=== PATIENT | male | born 1960 | race Caucasian/White ===

== ENCOUNTER 2025-08-25 12:26 | Inpatient (IN) | payer OTHER ==
[2025-08-25 12:55] LABS: Absolute Lymphocytes (CBC) 0.7 K/uL (0.7-4.9); Hematocrit 39.1 % (39.6-49.0); Hemoglobin 12.7 g/dL (13.6-17.9); MCH 29.4 pg (27.0-35.0); MCHC 32.6 g/dL (32.0-36.0); MCV 90.2 fL (80-100); MPV 8.0 fL (7.6-11.3); Nucleated RBC Absolute Count 0.0 (0-0); Nucleated Red Blood Cells % 0.0 % (0-0); RBC Red Blood Cell Count 4.33 M/uL (4.33-5.43); White Blood Count 5.00 thou/uL (4.3-10.9)
[2025-08-25 13:16] LABS: ALT/SGPT 36 U/L (16-61); AST/SGOT 35 U/L (15-37); Albumin 2.9 g/dL (3.4-5.0); Albumin/Globulin Ratio 0.7 (1.1-1.8); Alkaline Phosphatase 68 U/L (45-117); Anion Gap 10.9 mEq/L (5.0-15.0); BUN Blood Urea Nitrogen 17 mg/dL (7-18); Globulin 4.3 g/dL (2.3-3.5); Glucose Level 114 mg/dL (74-106); Magnesium 1.6 mg/dL (1.6-2.4); Potassium 3.9 mEq/L (3.5-5.1)
--- NOTE | 2025-08-25 13:19 | RAD REPORT ---
EXAM: Chest Single View HISTORY: 65 years Male seizure COMPARISON: 04/08/2018 FINDINGS: LUNGS/PLEURA: Bronchial wall thickening is seen within the lung bases. No focal consolidation. CARDIAC/MEDIASTINUM: Mild cardiomegaly UPPER ABDOMEN: No significant abnormality. BONES: No acute abnormality. Multiple left-sided rib fractures. LINES/TUBES/OTHER: N/A IMPRESSION: Bronchial wall thickening is seen at the lung bases could reflect acute or chronic bronchitis. No con solidative airspace disease.
[2025-08-25 13:21] LABS: Bilirubin Indirect, Calculated 0.1 mg/dL (0.2-0.8)
[2025-08-25 13:23] LABS: Troponin High Sensitivity 140.5 pg/mL (<58.9)
--- NOTE | 2025-08-25 13:42 | ER ---
Nurse's Notes [facility] Name: Bony Lal Age: 65 yrs Sex: Male : 1960 Arrival Date: 08/25/2025 Time: 12:26 Bed 13 Private MD: Diagnosis: Subsequent non-ST elevation (NSTEMI) myocardial infarction;Other seizures;Essential (primary) hypertension Presentation: 08/25 12:31 Chief complaint: EMS states: "toned out for seizure while at dentist office while mb9 getting cavity replacing after lidocaine injection. Full body seizure for 1 minute.". Coronavirus screen: Vaccine status: Patient reports being unvaccinated. Ebola Screen: No symptoms or risks identified at this time. Initial Sepsis Screen: Does the patient meet any 2 criteria? No. Patient's initial sepsis screen is negative. Does the patient have a suspected source of infection? No. Patient's initial sepsis screen is negative. Risk Assessment: Do you want to hurt yourself or someone else? Patient reports no desire to harm self or others. Onset of symptoms was August 25, 2025. 12:31 Acuity: JONATHAN 2 mb9 12:31 Method Of Arrival: EMS: [facility] mb9 Triage Assessment: 12:32 General: Appears in no apparent distress. Behavior is calm, cooperative. Pain: Denies mb9 pain. EENT: No signs and/or symptoms were reported regarding the EENT system. Neuro: Shin Agitation-Sedation Scale (RASS): 0 - Alert and Calm Level of Consciousness is awake, alert, obeys commands, Oriented to person, place, time, situation, Appropriate for age. Cardiovascular: Heart tones S1 S2 present Patient's skin is warm and dry. Respiratory: Airway is patent Respiratory effort is even, unlabored, Respiratory pattern is regular, symmetrical, Breath sounds are clear bilaterally. GI: Abdomen is round non-distended, Bowel sounds present X 4 quads. Abd is soft and non tender X 4 quads. : No signs and/or symptoms were reported regarding the genitourinary system. Derm: Skin is pink, warm \\T\\ dry. Musculoskeletal: Range of motion: intact in all extremities. Historical: - Allergies: 12:30 No Known Allergies; mb9 - PMHx: 12:30 colon cancer; Prostate Cancer; Sleep Apnea; Hypertensive disorder; mb9 - PSHx: 12:30 TURP; mb9 - Immunization history:: Adult Immunizations up to date. - Infectious Disease History:: Denies. - Social history:: Smoking status: Patient denies any tobacco usage or history of. Screenin:17 [facility] ED Fall Risk Assessment (Adult) History of falling in the last 3 months, mb9 including since admission No falls in past 3 months (0 pts) Confusion or Disorientation No (0 pts) Intoxicated or Sedated No (0 pts) Impaired Gait No (0 pts) Mobility Assist Device Used No (0 pt) Altered Elimination No (0 pt) Score/Fall Risk Level 3 or more points = High Risk Oriented to surroundings, Maintained a safe environment, Educated pt \\T\\ family on fall prevention, incl call for assistance when getting out of bed, Assessed \\T\\ reinforced patient's understanding of fall precautions. Abuse screen: Denies threats or abuse. Nutritional screening: No deficits noted. Tuberculosis screening: No symptoms or risk factors identified. Assessment: 12:33 Reassessment: see triage assessment. mb9 13:45 Reassessment: Patient appears in no apparent distress at this time. No changes from mb9 previously documented assessment. Patient and/or family updated on plan of care and expected duration. Pain level reassessed. Patient is alert, oriented x 3, equal unlabored respirations, skin warm/dry/pink. 15:09 Reassessment: Patient appears in no apparent distress at this time. No changes from mb9 previously documented assessment. Patient and/or family updated on plan of care and expected duration. Pain level reassessed. Patient is alert, oriented x 3, equal unlabored respirations, skin warm/dry/pink. Vital Signs: 12:30 BP 191 / 72; Pulse 67; Resp 16; Temp 98; Pulse Ox 99% ; Weight 104.33 kg; Height 5 ft. mb9 9 in. ; Pain 0/10; 13:16 BP 168 / 70; Pulse 61; Resp 18; Pulse Ox 100% on R/A; mb9 15:09 BP 165 / 72; Pulse 60; Resp 18; Pulse Ox 100% on R/A; mb9 12:30 Body Mass Index 33.96 (104.33 kg, 175.26 cm) mb9 12:30 Pain Scale: Adult mb9 ED Course: 12:30 Patient arrived in ED. mb9 12:30 Mosley, Zion, DO is Attending Physician. ms3 12:30 Arm band placed on. mb9 12:30 Initial lab(s) drawn, by co, sent to lab. Inserted saline lock: 20 gauge in left mb9 antecubital area, using aseptic technique. Blood collected. Flushed with 10 mL NS. 12:32 Triage completed. mb9 12:43 Alejandra Aragon, RN is Primary Nurse. mb9 12:44 EKG done, by ED staff, reviewed by Zion Mosley DO. mb9 12:46 EKG done, by payroll technician. reviewed by Zion Mosley DO. ts3 13:05 XRAY Chest (1 view) In Process Unspecified. EDMS 13:17 Placed in gown. Bed in low position. Call light in reach. Side rails up X 1. Provided mb9 Education on: press call light if needing anything. Client placed on continuous cardiac and pulse oximetry monitoring. NIBP monitoring applied. health type technician on. 13:38 CT Head Brain wo Cont In Process Unspecified. EDMS 13:41 Rory Maria MD is Hospitalizing Provider. ms3 15:42 No provider procedures requiring assistance completed. Patient admitted, IV remains in mb9 place. Administered Medications: 14:14 Drug: Aspirin PO Chewable Tablet 324 mg PO once; 81 mg tablets x 4 Route: PO; mb9 Medication: 13:17 VIS not applicable for this client. mb9 Outcome: 13:41 Decision to Hospitalize by Provider. ms3 15:42 Admitted to Med/surg accompanied by tech, via stretcher, room 206, mb9 15:42 Condition: stable 15:42 Instructed on the need for admit, 15:43 Patient left the ED. mb9 Signatures: Dispatcher [employer] EDMS Zion Mosley DO DO ms3 Alejandra Aragon RN RN mb9 Liset Shetty ts3
--- NOTE | 2025-08-25 13:42 | EDPHYS ---
Physician Documentation [facility] Name: Bony Lal Age: 65 yrs Sex: Male : 1960 Arrival Date: 08/25/2025 Time: 12:26 Bed 13 Private MD: ED Physician Zion Mosley HPI: 08/25 12:39 This 65 yrs old Male presents to ER via EMS with complaints of Seizure. ms3 12:39 65-year-old male with past medical history of colon cancer, prostate cancer, sleep ms3 apnea, hypertension presents to the emergency department via [facility] status post 1-1/2-minute seizure while at the dentist office. EMS states dentistry was injecting lidocaine when patient had seizure. Patient is without headache, nausea, vomiting, pain. Patient states he does not know why he is in the emergency department.. Historical: - Allergies: 12:30 No Known Allergies; mb9 - PMHx: 12:30 colon cancer; Prostate Cancer; Sleep Apnea; Hypertensive disorder; mb9 - PSHx: 12:30 TURP; mb9 - Immunization history:: Adult Immunizations up to date. - Infectious Disease History:: Denies. - Social history:: Smoking status: Patient denies any tobacco usage or history of. ROS: 12:39 Constitutional: Negative for fever, and chills. Cardiovascular: Negative for chest ms3 pain, and palpitations. Respiratory: Negative for shortness of breath, cough, wheezing, and pleuritic chest pain, Abdomen/GI: Negative for abdominal pain, nausea, vomiting, diarrhea, and constipation, MS/Extremity: Negative for injury and deformity, Skin: Negative for injury, rash, and discoloration, 12:39 Neuro: Positive for seizure activity, Exam: 12:39 Constitutional: This is a well developed, well nourished patient who is awake, alert, ms3 and in no acute distress. Cardiovascular: Regular rate and rhythm with a normal S1 and S2. No gallops, murmurs, or rubs. Normal PMI, no JVD. No pulse deficits. Respiratory: Lungs have equal breath sounds bilaterally, clear to auscultation and percussion. No rales, rhonchi or wheezes noted. No increased work of breathing, no retractions or nasal flaring. Abdomen/GI: Soft, non-tender, with normal bowel sounds. No distension or tympany. No guarding or rebound. No evidence of tenderness throughout. Skin: Warm, dry with normal turgor. Normal color with no rashes, no lesions, and no evidence of cellulitis. MS/ Extremity: Pulses equal, no cyanosis. Neurovascular intact. Full, normal range of motion. 12:39 Neuro: Orientation: is normal, to person, place, time \T\ situation. Mentation: is normal, Memory: is normal, Cranial nerves: CN I not tested, CN II- XII are normal as tested, Cerebellar function: is grossly normal, Motor: is normal, Sensation: is normal, Gait: not applicable 12:57 ECG was reviewed by the Attending Physician. ms3 Vital Signs: 12:30 BP 191 / 72; Pulse 67; Resp 16; Temp 98; Pulse Ox 99% ; Weight 104.33 kg; Height 5 ft. mb9 9 in. ; Pain 0/10; 13:16 BP 168 / 70; Pulse 61; Resp 18; Pulse Ox 100% on R/A; mb9 15:09 BP 165 / 72; Pulse 60; Resp 18; Pulse Ox 100% on R/A; mb9 12:30 Body Mass Index 33.96 (104.33 kg, 175.26 cm) mb9 12:30 Pain Scale: Adult mb9 MDM: 12:31 Medical Screening Exam initiated ms3 12:39 Differential diagnosis: cardiac arrhythmia, seizure, Hypertension. ms3 14:06 Data reviewed: vital signs, nurses notes, lab test result(s), EKG, radiologic studies, ms3 and as a result, I will admit patient. Consideration of Admission/Observation Patient was admitted/placed on observation. Management of patient was discussed with the following: Hospitalist: Nicolas on behalf of Dr Maria. I considered the following discharge prescriptions or medication management in the emergency department Medications were administered in the Emergency Department. See MAR. Independent interpretation of the following test(s) in the Emergency Department EKG: See my EKG interpretation above CT Scan: My interpretation is CT Head without contrast images reviewed by me does not reveal ICH. Historians other than the Patient: EMS: [facility]. Counseling: I had a detailed discussion with the patient and/or guardian regarding the historical points, exam findings, and any diagnostic results supporting the discharge/admit diagnosis, lab results, radiology results, the need for further work-up and treatment in the hospital. ED course: Discussed elevated troponin and necessity for admission with patient. Patient understands agrees with plan. All questions were answered.. 08/25 12:39 Order name: Basic Metabolic Panel; Complete Time: 13:24 ms3 08/25 12:39 Order name: CBC with Diff; Complete Time: 13:24 ms3 08/25 12:39 Order name: LFT's; Complete Time: 13:24 ms3 08/25 12:39 Order name: Magnesium; Complete Time: 13:24 ms3 08/25 12:39 Order name: Troponin HS; Complete Time: 13:24 ms3 08/25 14:18 Order name: CBC with Automated Diff EDMS 08/25 14:18 Order name: CBC with Automated Diff EDMS 08/25 14:18 Order name: CBC with Automated Diff EDMS 08/25 14:18 Order name: CBC with Automated Diff EDMS 08/25 14:18 Order name: CBC with Automated Diff EDMS 08/25 14:18 Order name: Comprehensive Metabolic Panel EDMS 08/25 14:18 Order name: Comprehensive Metabolic Panel EDMS 08/25 14:18 Order name: Comprehensive Metabolic Panel EDMS 08/25 14:18 Order name: Comprehensive Metabolic Panel EDMS 08/25 14:18 Order name: Comprehensive Metabolic Panel EDMS 08/25 14:18 Order name: Magnesium EDMS 08/25 14:18 Order name: Magnesium EDMS 08/25 14:19 Order name: Magnesium EDMS 08/25 14:19 Order name: Magnesium EDMS 08/25 14:19 Order name: Magnesium EDMS 08/25 14:19 Order name: T4 Free EDMS 08/25 14:19 Order name: T4 Free EDMS 08/25 14:19 Order name: Thyroid Stimulating Hormone EDMS 08/25 14:19 Order name: Thyroid Stimulating Hormone EDMS 08/25 14:19 Order name: Troponin High Sensitivity EDMS 08/25 14:19 Order name: Troponin High Sensitivity EDMS 08/25 14:19 Order name: Troponin High Sensitivity EDMS 08/25 12:39 Order name: XRAY Chest (1 view); Complete Time: 13:24 ms3 08/25 13:26 Order name: CT Head Brain wo Cont; Complete Time: 13:54 ms3 08/25 14:19 Order name: Echo with Doppler EDMS 08/25 12:39 Order name: EKG; Complete Time: 12:40 ms3 08/25 12:39 Order name: Cardiac monitoring; Complete Time: 12:44 ms3 08/25 12:39 Order name: EKG - Nurse/Tech; Complete Time: 12:44 ms3 08/25 12:39 Order name: IV Saline Lock; Complete Time: 12:44 ms3 08/25 12:39 Order name: Labs collected and sent; Complete Time: 12:44 ms3 08/25 12:39 Order name: O2 Per Protocol; Complete Time: 12:44 ms3 08/25 12:39 Order name: O2 Sat Monitoring; Complete Time: 12:44 ms3 EC:57 Rate is 65 beats/min. Rhythm is regular. QRS [place] is Normal. DC interval is normal. QRS ms3 interval is normal. Clinical impression: NSR w/ Non-specific ST/T Changes. Interpreted by me. Reviewed by me. Administered Medications: 14:14 Drug: Aspirin PO Chewable Tablet 324 mg PO once; 81 mg tablets x 4 Route: PO; mb9 Disposition Summary: 08/25/25 13:41 Hospitalization Ordered Notes: Hospitalization Status: Inpatient Admission ms3 Provider: Rory Maria ms3 Location: Telemetry/MedSurg (Inpatient) ms3 Condition: Stable ms3 Problem: new ms3 Symptoms: are unchanged ms3 Bed/Room Type: Standard ms3 Room Assignment: 206(08/25/25 14:43) bd Diagnosis - Subsequent non-ST elevation (NSTEMI) myocardial infarction ms3 - Other seizures ms3 - Essential (primary) hypertension ms3 Forms: - Medication Reconciliation Form ms3 - SBAR form ms3 - Leadership Thank You Letter ms3 Signatures: Dispatcher [employer] EDMS Natalie Gillespie Lee, TIRE VULCANIZER-C TIRE VULCANIZER-Zion Alberts DO DO ms3 Alejandra Aragon RN RN mb9 Corrections: (The following items were deleted from the chart) 14: 13:41 ms3 bd
--- NOTE | 2025-08-25 13:52 | RAD REPORT ---
EXAMINATION: Head Brain Wo Cont CLINICAL INDICATION: Male, 65 years old.SEIZURE TECHNIQUE: Axial CT images from the skull base to the vertex without intravenous contrast. Coronal an d sagittal reformatted images were created from the data set. One or more of the following dose reduction techniques were used: Automated exposure control, adjustment of the mA and/or kV according to patient size, and/or iterative reconstruction. Unless otherwise specified, incidental findings do not require dedicated imaging follow-up. [id number]. COMPARISON: No prior exams FINDINGS: INTRACRANIAL: No acute intracranial hemorrhage. No acute large vascular territory infarct. No hydroce phalus. No mass effect or midline shift. Mild chronic small vessel ischemic changes. VASCULATURE: No visualized abnormalities in the arteries or dural venous sinuses. SCALP/SKULL: No calvarial fracture identified. No acute soft tissue abnormality. SINUSES: The visualized paranasal sinuses are mostly clear. No significant mastoid fluid. IMPRESSION: No acute intracranial abnormality.
[2025-08-25] MEDS ORDERED: ASPIRIN 81 MG CHEWABLE TABLET ONE (14:12)
[2025-08-25] MEDS ORDERED: ACETAMINOPHEN 325 MG TABLET PO PRN (14:13)
--- NOTE | 2025-08-25 15:05 | P.HP ---
Certification for Inpatient Patient admitted to: Inpatient With expected LOS: >2 Midnights Patient will require the following post-hospital care: None Practitioner: I am a practitioner with admitting privileges, knowledge of patient current condition, hospital course, and medical plan of care. Services: Services provided to patient in accordance with Admission requirements found in Title 42 Section 412.3 of the Code of Federal Regulations Patient History Date of Service: 08/25/25 Reason for admission: Seizure History of Present Illness: 65-year-old male with history of hypertension, prostate cancer, hyperlipidemia presents the emergency department for reported first-time seizure. He was at the dentist office attempted to have his molar removed. He cannot be totally sure if they began the injection of lidocaine but he thinks he remembers them wiggling his cheeks/lip like they usually do with injecting lidocaine, after this he woke up with staff around him stating that he had a seizure. He is confused in the immediate aftermath likely postictal. He has never had a seizure before. Patient was evaluated in the emergency department his labs were significant for a creatinine of 1.43 GFR 54 glucose 114 initial high sensitive troponin of 140.5, EKG without STEMI criteria CT of the head was negative for acute findings, chest x-ray showed bronchial wall thickening seen at the lung bases which could reflect acute or chronic bronchitis. No consolidated airspace disease. Patient said no further seizure-like activity during her stay in the emergency department, he denies any chest pain, shortness of breath, near syncope or other cardiac symptoms. Is unclear if his seizures related to the injection of lidocaine or possible if there is an underlying arrhythmia. Patient will be admitted for seizure, elevated troponin. - Past Medical/Surgical History -: Hypertension -: Hyperlipidemia -: Alcohol use disorder -: History of prostate cancer with previous TURP -: TURP - Social History Alcohol use: Yes CD- Drugs: No Caffeine use: No Place of Residence: Home Review of Systems 10-point ROS is otherwise unremarkable Neurological: Seizures Physical Examination - Physical Exam General: Alert, In no apparent distress, Oriented x3 HEENT: Atraumatic, PERRLA, EOMI Neck: Supple, 2+ carotid pulse no bruit, No LAD Respiratory: Clear to auscultation bilaterally, Normal air movement Cardiovascular: Regular rate/rhythm, Normal S1 S2 Gastrointestinal: Normal bowel sounds, No tenderness Musculoskeletal: No tenderness Integumentary: No rashes Neurological: Normal gait, Normal speech, Normal strength at 5/5 x4 extr, Normal affect - Studies Laboratory Data (last 24 hrs) 08/25/25 08/25/25 12:44 12:44 WBC 5.00 Hgb 12.7 L Hct 39.1 L Plt Count 144 L Sodium 137 Potassium 3.9 BUN 17 Creatinine 1.43 H Glucose 114 H Magnesium 1.6 Total Bilirubin 0.3 AST 35 ALT 36 Alkaline Phosphatase 68 Assessment and Plan - Plan Assessment: Suspected/reported seizure NSTEMI Hypertension Hyperlipidemia History of prostate cancer with previous TURP Alcohol use disorder Plan: Suspected/reported seizure Possibly related to injection of lidocaine Will monitor on telemetry to rule out underlying arrhythmia Seizure precautions Neurology consultation 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, will need to follow-up with neurology for clearance NSTEMI Troponins, monitor on telemetry Daily aspirin, statin Echocardiogram ordered Denies previous cardiac history has never had a coronary angiogram Last tress test around 20 years ago per patient Hypertension Hyperlipidemia Home medications continued History of prostate cancer with previous TURP Alcohol use disorder Counseled on need for alcohol cessation DVT PPX: Lovenox Code status: Full code Discharge Plan: Home Plan to discharge in: 48 Hours - Advance Directives Does patient have a Living Will: No Does patient have a Durable POA for Healthcare: No - Code Status/Comfort Care Code Status Assessed: Yes (Full code) Critical Care: No Time Spent Managing Pts Care (In Minutes): 70
[2025-08-25 16:08] VITALS: O2SAT 100; BMI 34.9
[2025-08-25] MEDS: FLU (Fluarix) 25-26 (6MOS UP)/PF 45 MCG/0.5 ML Syringe IM ONE (19:00)
[2025-08-25] MEDS: MIRTAZAPINE 15 MG TAB PO SCH (20:44)
[2025-08-25] MEDS: ATORVASTATIN 10 MG TAB PO SCH (20:44)
[2025-08-26 05:50] LABS: Absolute Lymphocytes (CBC) 0.9 K/uL (0.7-4.9); Hematocrit 37.3 % (39.6-49.0); Hemoglobin 12.8 g/dL (13.6-17.9); MCH 30.6 pg (27.0-35.0); MCHC 34.4 g/dL (32.0-36.0); MCV 89.0 fL (80-100); MPV 8.1 fL (7.6-11.3); Nucleated RBC Absolute Count 0.0 (0-0); Nucleated Red Blood Cells % 0.0 % (0-0); RBC Red Blood Cell Count 4.19 M/uL (4.33-5.43); White Blood Count 4.40 thou/uL (4.3-10.9)
[2025-08-26 06:16] LABS: ALT/SGPT 37.0 U/L (16-61); AST/SGOT 35.0 U/L (15-37); Albumin 2.8 g/dL (3.4-5.0); Albumin/Globulin Ratio 0.7 (1.1-1.8); Alkaline Phosphatase 59.0 U/L (45-117); Anion Gap 9.8 mEq/L (5.0-15.0); BUN Blood Urea Nitrogen 15.0 mg/dL (7-18); Globulin 4.3 g/dL (2.3-3.5); Glucose Level 106.0 mg/dL (74-106); Magnesium 1.6 mg/dL (1.6-2.4); Potassium 3.8 mEq/L (3.5-5.1); Thyroid Stimulating Hormone 2.98 uIU/mL (0.358-3.740)
[2025-08-26] MEDS: POTASSIUM CL SA 10 MEQ TAB PO ONE (08:12)
[2025-08-26] MEDS: LOSARTAN/HCTZ 50-12.5 PO SCH (08:12)
[2025-08-26] MEDS: ASPIRIN EC 81 MG TAB PO SCH (08:12)
[2025-08-26] MEDS: ENOXAPARIN 40 MG/0.4 ML SQ SCH (08:13)
--- NOTE | 2025-08-26 10:43 | P.CNS ---
Date of Consult: 08/26/25 Chief Complaint: Seizure History of Present Illness: Patient with PMH of HTN, HLD, presented with possible seizure while he was at dentist office, he mention that he had extreme anxiety when he was going there, he doesnt remember what happened exactly, but when he was waking up, he was told, he had a seizure like activity, he is active, denies chest pain, no palpitations, no syncope. Allergies No Known Allergies Allergy (Unverified 08/25/25 16:16) Home medications list reviewed: Yes Home Medications: Lansoprazole 30 mg PO DAILY 08/25/25 Losartan/Hydrochlorothiazide [Losartan-Hctz 100-25 mg Tab] 1 each PO DAILY 08/25/25 Lovastatin 20 mg PO DAILY 08/25/25 Mirtazapine 45 mg PO BEDTIME 08/25/25 Montelukast Sodium [Singulair] 10 mg PO BEDTIME 08/25/25 atenoloL [Atenolol] 100 mg PO DAILY 08/25/25 - Past Medical/Surgical History Diabetic: No -: Hypertension -: Hyperlipidemia -: Alcohol use disorder -: History of prostate cancer with previous TURP -: TURP - Social History Alcohol use: Yes CD- Drugs: No Caffeine use: No Place of Residence: Home Review of Systems 10-point ROS is otherwise unremarkable Physical Examination Temp Pulse Resp BP Pulse Ox 98.0 F 51 16 149/67 H 98 08/26/25 08:00 08/26/25 08:00 08/26/25 08:00 08/26/25 08:00 08/26/25 08:00 General: Alert, In no apparent distress HEENT: Atraumatic, PERRLA, Mucous membr. moist/pink, EOMI, Sclerae nonicteric Neck: Supple, 2+ carotid pulse no bruit, No LAD, Without JVD or thyroid abnormality Respiratory: Clear to auscultation bilaterally, Normal air movement Cardiovascular: Regular rate/rhythm, Normal S1 S2 Gastrointestinal: Normal bowel sounds, No tenderness Musculoskeletal: No tenderness Integumentary: No rashes Neurological: Normal gait, Normal speech, Normal tone, Normal affect Lymphatics: No axilla or inguinal lymphadenopathy Laboratory Data (last 24 hrs) 08/25/25 08/25/25 12:44 12:44 WBC 5.00 Hgb 12.7 L Hct 39.1 L Plt Count 144 L Sodium 137 Potassium 3.9 BUN 17 Creatinine 1.43 H Glucose 114 H Magnesium 1.6 Total Bilirubin 0.3 AST 35 ALT 36 Alkaline Phosphatase 68 - Problems (1) NSTEMI (non-ST elevated myocardial infarction) Current Visit: Yes Status: Acute Plan: Patient with mild leak in troponin that down trended, no active chest pain, no significant EKG changes this is type 2 OH from seizure like activity. get echo, if normal then no inpatient further cardiac work up needed patient to follow up as outpatient with cardiology for cardiac PET (2) HTN (hypertension) Current Visit: Yes Status: Acute Plan: resume home medications and monitor (3) HLD (hyperlipidemia) Current Visit: Yes Status: Acute Plan: continue statins and follow up with PCP for lipid panel
--- NOTE | 2025-08-26 15:18 | P.DS ---
Admission Date: 08/25/25 Discharge Date: 08/27/25 Disposition: ROUTINE DISCHARGE Discharge Condition: GOOD Reason for Admission: Seizure Consultations: NeurologyDrJovany Barfield CardiologyDr. Kolb Brief History of Present Illness: 65-year-old male with history of hypertension, prostate cancer, hyperlipidemia presents the emergency department for reported first-time seizure. He was at the dentist office attempted to have his molar removed. He cannot be totally sure if they began the injection of lidocaine but he thinks he remembers them wiggling his cheeks/lip like they usually do with injecting lidocaine, after this he woke up with staff around him stating that he had a seizure. He is confused in the immediate aftermath likely postictal. He has never had a seizure before. Patient was evaluated in the emergency department his labs were significant for a creatinine of 1.43 GFR 54 glucose 114 initial high sensitive troponin of 140.5, EKG without STEMI criteria CT of the head was negative for acute findings, chest x-ray showed bronchial wall thickening seen at the lung bases which could reflect acute or chronic bronchitis. No consolidated airspace disease. Patient said no further seizure-like activity during her stay in the emergency department, he denies any chest pain, shortness of breath, near syncope or other cardiac symptoms. Is unclear if his seizures related to the injection of lidocaine or possible if there is an underlying arrhythmia. Patient will be admitted for seizure, elevated troponin. Hospital Course: Assessment: Suspected/reported seizure NSTEMI Hypertension Hyperlipidemia History of prostate cancer with previous TURP Alcohol use disorder Patient was admitted to the hospital for reported seizure-like activity, elevated troponin. This episode occurred at the dentist right around the time he was receiving an injection of lidocaine. He cannot be totally clear if the injection had started or not but the He remembered he woke up with staff looking at him telling him he had a seizure. Patient was evaluated in the hospital, his troponin was mildly elevated on admission at 140.5, it peaked at 192.2 and is now downtrending. Patient denies any chest pain or cardiac symptoms at this time. He was seen by cardiology recommends outpatient follow-up for PET stress test. Additionally patient was seen by neurology. He will need to follow-up in the clinic for an EEG, at this time neurology recommends starting Keppra 500 mg twice daily until further workup can be completed as an outpatient. In the meantime he should not drive. Prescription for Keppra 500 mg twice daily sent to pharmacy Please follow-up with cardiologyDr. Kolb in 1 to 2 weeks in the clinic for further evaluation of your heart Please follow-up with neurology/Dr. Barfield in the next 1 to 2 weeks for EEG and further seizure evaluation Vital Signs/Physical Exam: Temp Pulse Resp BP Pulse Ox 98.1 F 59 16 150/67 H 98 08/26/25 12:00 08/26/25 12:00 08/26/25 12:00 08/26/25 12:00 08/26/25 12:00 General: Alert, In no apparent distress, Oriented x3 HEENT: Atraumatic, PERRLA Neck: Supple, JVD not distended Respiratory: Clear to auscultation bilaterally, Normal air movement Cardiovascular: Regular rate/rhythm, Normal S1 S2 Gastrointestinal: Normal bowel sounds, No tenderness Musculoskeletal: No tenderness Integumentary: No rashes Neurological: Normal speech, Normal affect Laboratory Data at Discharge: WBC 4.40 thou/uL (4.3-10.9) 08/26/25 05:40 Hgb 12.8 g/dL (13.6-17.9) L 08/26/25 05:40 Hct 37.3 % (39.6-49.0) L 08/26/25 05:40 Plt Count 152 thou/uL (152-406) 08/26/25 05:40 Sodium 137 mEq/L (136-145) 08/26/25 05:40 Potassium 3.8 mEq/L (3.5-5.1) 08/26/25 05:40 BUN 15 mg/dL (7-18) 08/26/25 05:40 Creatinine 0.94 mg/dL (0.70-1.30) 08/26/25 05:40 Glucose 106 mg/dL (74-106) 08/26/25 05:40 Magnesium 1.6 mg/dL (1.6-2.4) 08/26/25 05:40 Total Bilirubin 0.8 mg/dL (0.2-1.0) 08/26/25 05:40 AST 35 U/L (15-37) 08/26/25 05:40 ALT 37 U/L (16-61) 08/26/25 05:40 Alkaline Phosphatase 59 U/L (45-117) 08/26/25 05:40 Home Medications: Lansoprazole 30 mg PO DAILY 08/25/25 Losartan/Hydrochlorothiazide [Losartan-Hctz 100-25 mg Tab] 1 each PO DAILY 08/25/25 Lovastatin 20 mg PO DAILY 08/25/25 Mirtazapine 45 mg PO BEDTIME 08/25/25 Montelukast Sodium [Singulair] 10 mg PO BEDTIME 08/25/25 atenoloL [Atenolol] 100 mg PO DAILY 08/25/25 levETIRAcetam [Keppra Tab] 500 mg PO BID #60 tab 08/26/25 New Medications: levETIRAcetam [Keppra Tab] 500 mg PO BID #60 tab Physician Discharge Instructions: Patient was admitted to the hospital for reported seizure-like activity, elevated troponin. This episode occurred at the dentist right around the time he was receiving an injection of lidocaine. He cannot be totally clear if the injection had started or not but the He remembered he woke up with staff looking at him telling him he had a seizure. Patient was evaluated in the hospital, his troponin was mildly elevated on admission at 140.5, it peaked at 192.2 and is now downtrending. Patient denies any chest pain or cardiac symptoms at this time. He was seen by cardiology recommends outpatient follow-up for PET stress test. Additionally patient was seen by neurology. He will need to follow-up in the clinic for an EEG, at this time neurology recommends starting Keppra 500 mg twice daily until further workup can be completed as an outpatient. In the meantime he should not drive. Patient was also counseled on need for alcohol cessation Prescription for Keppra 500 mg twice daily sent to pharmacy Please follow-up with cardiologyDr. Kolb in 1 to 2 weeks in the clinic for further evaluation of your heart Please follow-up with neurology/Dr. Barfield in the next 1 to 2 weeks for EEG and further seizure evaluation Diet: AHA Activity: Ad yesenia Followup: Cesario Barfield MD [ASSOCIATE-ACTIVE - CAN ADMIT] - 1-2 Weeks Branden Kolb MD [ACTIVE - CAN ADMIT] - 1-2 Weeks NONE,NONE [Primary Care Provider] - Time spent managing pt's care (in minutes): 35
--- NOTE | 2025-08-26 20:33 | RAD REPORT ---
EXAMINATION: MRI BRAIN WITHOUT AND WITH CONTRAST CLINICAL INDICATION: Epilsepsy protocol TECHNIQUE: Multiplanar multisequence MR images of the brain were obtained without and with intravenou s contrast. Unless otherwise specified, incidental findings do not require dedicated imaging follow-up. COMPARISON: 08/25/2025 FINDINGS: INTRACRANIAL: Diffusion-weighted images show no acute or early subacute infarction. No abnormal brain parenchymal signal. Mild brain atrophy. The ventricles are normal in size and morphology. No augmented susceptibility. There is no mass effect or midline shift. No abnormal extraaxial fluid haydee ection. VASCULATURE: Normal signal voids in the larger intracranial arteries and dural venous sinuses. SINUSES: The paranasal sinuses and mastoid air cells are predominantly clear. BONE: The marrow signal pattern is within normal limits. CONTRAST: No pathologic postcontrast enhancement to indicate tumor or infection. OTHER FINDINGS: Symmetric temporal lobes and hippocampal structures. IMPRESSION: No significant intracranial abnormalities.
[2025-08-26] MEDS: MONTELUKAST 10 MG TAB PO SCH (20:53)
--- NOTE | 2025-08-26 22:56 | CON ---
Date of Consultation: 08/26/2025 Reason For Consultation: Consultation called because of recent onset seizures. History Of Present Illness: Mr. Lal is a 65-year-old patient with hypertension, dyslipidemia, chron ic alcohol use, prostate cancer, status post TURP, who was having abdominal procedure when he recalls receiving the topical numbing agent in his left upper cheek area when a needle was about to be intro duced, he apparently lost consciousness. He is not sure if he received to begin the proced ure for the tooth extraction. The patient just next recalls waking up, confused with staff hovering around and he was unsure why they were there. The patient denies prior similar episodes or childhood seizures. He has met a truck guard and is now in hospital for evaluation for seizures. His CT sca n of the head showed no acute ischemic or hemorrhagic changes. Brain MRI done today showed no signif icant intracranial abnormalities and mild brain atrophy and no significant small-vessel ischemic dise ase. As noted, his temporal lobes and hippocampal structures were symmetric. The patient is not treated with antiepileptic medications. The electromechanical assembly technician is unavailable to have an EEG done at this time. Once he recovered and he is back to baseline, he denies any additional co nfusion or seizure-like activity. Past Medical History: As noted above. Past Surgical History: TURP procedure. Social History: The patient reports drinking a significant amount of alcohol on a regular basis for several years. Denies smoking or illegal drug use. Family History: Denies family history of seizures. Allergies: NO KNOWN DRUG ALLERGIES. Current Medications: Tylenol 650 every 4 hours as needed, aspirin 81 mg daily, atenolol 100 mg daily , Lipitor 10 mg at bedtime, Lovenox 40 mg subcutaneously daily, Hyzaar 50/12.5 two tablets daily, Rem magali 45 mg at bedtime, Singulair 10 mg at bedtime, Protonix 40 mg daily. Review of Systems: Currently, denies any fevers, chills, nausea, vomiting, myalgias, arthralgias, rash, headache, weight change. No psychiatric issues. No genitourinary issues. No abnormal stools. Physical Examination: Vital Signs: Blood pressure 146/67, pulse 66, respiratory rate 16, temperature 98.2, oxygen saturati on 98%. General: Mr. Lal is resting comfortably in his hospital bed. He is in no acute distress. HEENT: He is normocephalic, atraumatic. Sclerae anicteric. Oropharynx pink and moist. Neck: Supple. Chest: Clear. Heart: Regular. Extremities: Show no significant clubbing, cyanosis, or edema. Neurological: He is alert and oriented to person, place, time, and situation. Follows commands appr opriately. Cranial nerves 2 through 12 intact. Motor examination of upper and lower extremities 5/5 with normal bulk and tone. Sensation intact in upper and lower extremities. Reflexes 1 to 2+ upper and lower extremities and symmetric. Gait good stance, stride, and arm swing. Laboratory Studies: Complete blood count with differential essentially unremarkable. White blood ce ll count 4.4, hemoglobin 12.8, platelets 132. His sodium 137, potassium 3.8, carbon dioxide 25, his glucose ranged from 106-114, magnesium 1.6. As noted, the patient's troponin 1 high sensitivity did follow a pattern suggestive of myocardial infarction. On the 25 of August at 12:44, it is 140.5; a t 02:54 on the 189.6; at 10:48 on the 192.2 and at 05:40 on the 2nd 175.3. TSH normal at 2.9 and free T4 0.89. Assessment And Plan: Mr. Lal is a 65-year-old patient with a single new onset seizure in the settin g of receiving perhaps injection for numbing in the upper jaw area prior to extraction of a tooth. T he patient denies prior history of seizures. He does report significant history of alcohol consumpti on. He has comorbid hypertension, dyslipidemia along with prostate cancer status post TURP procedure . His plan at this point no antiepileptic medication be given. He should have a routine EEG at [facility]. A potential EEG monitoring study if there are episodes of confusion, disorientation, or any sei zure-like activity. Comorbid condition medications may be continued. The patient may be discharged home and follow up in Dr. Barfield's clinic for additional workup, which will include ambulatory EEG monitoring study. He should maintain an event diary. If the study is abnormal, he will be placed on anti-epileptic medications. The patient is worried about returning to his job as a [employer] a [employer]. 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 As the seizures occurred, they remain not to drive for 5 years if there are no more seizures. 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 The patient is requestin g at work to be sent to his job to allow him to return to work. He was told the laws should be follo wed as appropriate. He will follow up in clinic once discharged. CHERYL/MARIAH Voice ID: [id number] Report ID: [id number]
[2025-08-27 05:20] LABS: Absolute Lymphocytes (CBC) 1.2 K/uL (0.7-4.9); Hematocrit 37.4 % (39.6-49.0); Hemoglobin 12.8 g/dL (13.6-17.9); MCH 30.6 pg (27.0-35.0); MCHC 34.2 g/dL (32.0-36.0); MCV 89.5 fL (80-100); MPV 8.6 fL (7.6-11.3); Nucleated RBC Absolute Count 0.0 (0-0); Nucleated Red Blood Cells % 0.0 % (0-0); RBC Red Blood Cell Count 4.18 M/uL (4.33-5.43); White Blood Count 4.90 thou/uL (4.3-10.9)
[2025-08-27 05:37] LABS: ALT/SGPT 36.0 U/L (16-61); AST/SGOT 30.0 U/L (15-37); Albumin 2.9 g/dL (3.4-5.0); Albumin/Globulin Ratio 0.7 (1.1-1.8); Alkaline Phosphatase 62.0 U/L (45-117); Anion Gap 9.7 mEq/L (5.0-15.0); BUN Blood Urea Nitrogen 20.0 mg/dL (7-18); Globulin 4.1 g/dL (2.3-3.5); Glucose Level 127.0 mg/dL (74-106); Magnesium 1.6 mg/dL (1.6-2.4); Potassium 3.7 mEq/L (3.5-5.1)
--- NOTE | 2025-08-27 06:07 | P.PN ---
Date of Service: 08/26/25 Subjective: No acute events overnight No further seizure-like activity Patient feeling much better ROS: 10 point ROS as noted above, otherwise negative Physical exam GEN: Alert, oriented, NAD HEENT: Normal conjunctiva, sclera anicteric CV: Regular rate and rhythm, no edema Pulm: Nonlabored respirations on room air ABD: Soft, nontender, nondistended MSK: No joint tenderness Integumentary: No rashes Neuro: Normal speech, normal affect Vitals reviewed Assessment: Suspected/reported seizure NSTEMI Hypertension Hyperlipidemia History of prostate cancer with previous TURP Alcohol use disorder Plan: Suspected/reported seizure Possibly related to injection of lidocaine Will monitor on telemetry to rule out underlying arrhythmia Seizure precautions Neurology consultation 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
[2025-08-27] MEDS ORDERED: PANTOPRAZOLE 40MG TABLET PO SCH ×2 (06:30→07:30)
[2025-08-27 07:55] VITALS: BP 142/64; TEMP 97.9
== END 2025-08-27 08:54 | disposition home or self-care (01) | DRG 100 ==
LOC: ER 12:26 → ERHOLD 14:13 → 2ND 15:39
PROVIDERS: ADMIT Internal Medicine; ATTEND Internal Medicine
DX: R56.9 Unspecified convulsions (principal); I21.A1 Myocardial infarction type 2; I10 Essential (primary) hypertension; E78.5 Hyperlipidemia, unspecified; T41.3X5A Adverse effect of local anesthetics, initial encounter; Z85.46 Personal history of malignant neoplasm of prostate; Z85.038 Personal history of other malignant neoplasm of large intestine; Z79.899 Other long term (current) drug therapy
CPT/HCPCS: 36415; 70450; 70553; 71045; 80048; 80053; 80076; 82550; 83735; 84439; 84443; 84484; 85025; 93005; 93306; 99285; A9577; J1650